=== PATIENT | female | born 1980 | race Two or more races ===

== ENCOUNTER 2020-10-12 10:36 | Emergency (ER) | payer OTHER ==
[~2020-10-12] VITALS: Ht 160 cm; Wt 64.0 kg
[2020-10-12] MEDS ORDERED: SYNTHROID50 MCG PO (10:54)
[2020-10-12] MEDS ORDERED: MEDROLPACK PO (14:28)
[2020-10-12] MEDS ORDERED: ATARAX25 MG PO (14:28)
[2020-10-12] MEDS ORDERED: CLARITIN10 M1 PO (14:28)
[2020-10-12] MEDS ORDERED: MOMETASONE FURO15 G2 TOP (14:28)
[2020-10-12] MEDS ORDERED: LINDANE60 M1 TOP (15:24)
== END 2020-10-12 15:48 | disposition home or self-care (01) ==
LOC: ER 10:36
DX: R21 Rash and other nonspecific skin eruption (principal)

== ENCOUNTER 2022-12-18 15:13 | Emergency (ER) | payer OTHER ==
[~2022-12-18] VITALS: Ht 160 cm; Wt 59.0 kg
[~2022-12-18 15:13] MED LIST: ATARAX25 MG PO; CLARITIN10 M1 PO; DICLOFENAC POTA50 MG PO; LINDANE60 M1 TOP; MEDROLPACK PO; MOMETASONE FURO15 G2 TOP; NEURONTIN300 MG PO; SYNTHROID50 MCG PO
== END 2022-12-19 00:10 | disposition home or self-care (01) ==
LOC: ER 15:13
PROVIDERS: Emergency Medicine
DX: R10.32 Left lower quadrant pain (principal)

== ENCOUNTER 2024-07-26 16:01 | Emergency (ER) | payer OTHER ==
[~2024-07-26] VITALS: Ht 160 cm; Wt 57.2 kg
[2024-07-26] MEDS ORDERED: PROSAC (17:01)
[2024-07-26] MEDS ORDERED: VISTARIL50 MG/ML (17:02)
[2024-07-26] MEDS ORDERED: BUSPAR (17:02)
[2024-07-26] MEDS ORDERED: ADERAL (17:03)
[2024-07-26] MEDS ORDERED: FAMOTIDINE/PF 20 MG in 0.9 % SODIUM CHLORIDE 8 ML IV PUSH STA (17:21)
[2024-07-26] MEDS ORDERED: DIPHENOXYLATE HCL/ATROPINE 1 UDTAB TABLET PO ONE (17:30)
[2024-07-26] MEDS ORDERED: ONDANSETRON HCL 2 MG/ML VIAL IV ONE (17:30)
[2024-07-26] MEDS ORDERED: 0.9 % SODIUM CHLORIDE 1,000 ML IV SCH (17:30)
[2024-07-26] MEDS ORDERED: FAMOTIDINE/PF 20 MG/2 ML VIAL ONE (17:35)
[2024-07-26] MEDS ORDERED: ONDANSETRON HCL 2 MG/ML VIAL ONE (17:35)
[2024-07-26 17:37] LABS: HEMATOCRIT 41.1 % (36.0-45.00); HEMOGLOBIN 14.1 g/dL (12.0-15.00); MEAN CELL VOLUME 93.7 fL (80.00-100.00); MEAN CORPUSCULAR HEMOGLOBIN 32.1 pg (27.00-32.0); MEAN CORPUSCULAR HGB CONC 34.3 g/dl (32.0-36.0); PLATELET COUNT 329 K/uL (150-450); RED BLOOD COUNT 4.38 M/uL (4.00-6.00); RED CELL DISTRIBUTION WIDTH 13.2 % (11.5-14.5)
[2024-07-26 18:05] LABS: ALBUMIN 4.9 gm/dL (3.4-5.0); BILIRUBIN TOTAL 1.6 mg/dL (0.3-1.2); CALCIUM 9.4 mg/dL (8.5-10.1); CREATININE SERUM 0.8 mg/dL (0.55-1.02); GFR 78.66; GLOBULINA 3.6 G/DL (2.4-3.5); POTASSIUM 3.71 mEq/L (3.5-5.1); TOTAL PROTEIN 8.5 gm/dL (6.4-8.2)
[2024-07-26] MEDS ORDERED: ONDANSETRON ODT8 MG PO (19:02)
[2024-07-26] MEDS ORDERED: PEPCID AC20 MG PO (19:02)
== END 2024-07-26 19:15 | disposition home or self-care (01) ==
LOC: ER 16:02
PROVIDERS: General Practice
DX: K52.89 Other specified noninfective gastroenteritis and colitis (principal); Z20.822 Contact with and (suspected) exposure to COVID-19